=== PATIENT | male | born 1955 | race Caucasian/White ===

== ENCOUNTER 2024-08-10 21:45 | Emergency (ER) | payer MEDICARE, MEDICAID, SELFPAY ==
[2024-08-10 21:52] VITALS: BP 109/98; PULSE 74; RESP 16; TEMP 37.1; O2SAT 100
--- NOTE | 2024-08-10 22:07 | ED.GENADULT ---
HPI - General Adult General Chief complaint: Unspecified Stated complaint: HALLUCINATING S/P EATING MARIJUANA Time Seen by Provider: 08/10/24 21:48 History of Present Illness HPI narrative: 69-year-old male with no pertinent past medical history presenting to the emergency department after being picked up by police. Patient was outside a gas station admitted to drinking alcohol throughout the evening. He states while he was in the back of the police car getting a ride home he took out his marijuana jar and ingested and in described amount of marijuana. He did have some nausea and vomited up part of it. He states that this was leaf and but marijuana and not gummy or any kind of baked goods. He states he has been intoxicated before for marijuana and feels similar at this time. He was hallucinating when EMS arrived to help otherwise appears very well not any acute distress. He is very pleasant, talkative, denies any symptoms at this time aside from hallucinations. Denies any other intoxicants aside from alcohol today. Denies any medical history. Related Data Allergies Allergy/AdvReac Type Severity Reaction Status Date / Time No Known Allergies Allergy Verified 08/10/24 22:04 Review of Systems Review of Systems: As [facility] Social History Social History Substance use type: marijuana Exam Narrative: GENERAL: [Well-appearing, well-nourished, and in no acute distress.] HEAD: [Normocephalic, atraumatic.] EYES: [PERRLA and EOMI.] ENT: Nares clear, no rhinorrhea or epistaxis. Mucous membranes moist. NECK: Supple. CHEST: [Clear to auscultation. No respiratory distress.] HEART: [Regular rate and rhythm]. No murmur heard. [Normal peripheral pulses.] ABDOMEN: [Soft, nondistended], [nontender], [No rigidity or guarding] EXTREMITIES: Normal range of motion. [No edema.] SKIN: Warm, dry, no rash. NEURO: [No focal deficits]. Alert and oriented [x3.] PSYCH: intoxicated but pleasant, cooperative, not in any acute distress, denies any homicidal or suicidal ideation. Endorses hallucinations Course Vital Signs Vital signs: Vital Signs Temperature 37.1 C 08/10/24 21:52 Pulse Rate 74 08/10/24 21:52 Respiratory Rate 16 08/10/24 21:52 Blood Pressure 109/98 H 10/14/24 21:52 Pulse Oximetry 100 08/10/24 21:52 Oxygen Delivery Room Air 08/10/24 21:52 Temperature 37.1 C 08/10/24 21:52 Pulse Rate 65 08/11/24 06:47 Respiratory Rate 15 08/11/24 06:47 Blood Pressure 102/54 L 08/11/24 06:47 Pulse Oximetry 97 08/11/24 06:47 Oxygen Delivery Room Air 08/10/24 22:03 Medical Decision Making MDM Narrative Medical decision making narrative: 69-year-old male who ingested marijuana presenting to the emergency department for hallucinations. 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 He otherwise appears well not any acute distress. no homicidal or suicide ideation, he does not appear danger to himself or others at this time. He has normal reassuring vital signs. Will obtain an IV and basic labs including alcohol level. He was given a fluid bolus. He will be observed for sobriety prior to discharge. Patient's labs reassuring. He has recent metabolic sobriety while here in the emergency department has no acute complaints. He is tolerating p.o. intake and stable for discharge home at this time. He was given return precautions and told to avoid ingestion of marijuana. Medical Records Medical records reviewed: Yes I reviewed the external patient's medical records. Vital Signs Vital Signs: Vital Signs Temperature 37.1 C 08/10/24 21:52 Pulse Rate 74 08/10/24 21:52 Respiratory Rate 16 08/10/24 21:52 Blood Pressure 109/98 H 08/10/24 21:52 Pulse Oximetry 100 08/10/24 21:52 Oxygen Delivery Room Air 08/10/24 21:52 Temperature 37.1 C 08/10/24 21:52 Pulse Rate 65 08/11/24 06:47 Respiratory Rate 15 08/11/24
[2024-08-10 22:27] VITALS: PULSE 70
[2024-08-10] MEDS: ONDANSETRON INJ 4 MG/2 ML VIAL IV PUSH (22:38)
[2024-08-10] MEDS: THIAMINE HCL INJ 100 MG, FOLIC ACID INJ 1 MG, MAGNESIUM SULFATE INJ 1 GM in LACTATED RI... 1000 MG IV CONT (22:38)
[2024-08-10 22:39] LABS: Basophils Absolute Auto 0.1 K/mm3 (0.0-0.1); Basophils Percent Auto 1.2 % (0.2-1.2); Eosinophils Absolute Auto 0.3 K/mm3 (0-0.3); Hematocrit 45.4 % (42.0-52.0); Hemoglobin 15.2 g/dL (14.0-18.0); Immature Granulocyte Absolute 0.03 K/mm3 (0.00-0.031); Immature Granulocyte Percent A 0.3 % (0-0.5); Lymphocytes Absolute Auto 3.48 K/mm3 (0.9-3.2); Lymphocytes Percent Auto 32.7 % (18.3-44.2); Mean Corpuscular HGB Conc 33.5 g/dl (32-36); Mean Corpuscular Volume 98.7 fl (80-100); Mean Platelet Volume 10.1 fl (7.4-10.4); Monocytes Absolute Auto 0.8 K/mm3 (0.1-0.6); Monocytes Percent Auto 7.1 % (2.6-8.5); Neutrophils Absolute Auto 5.9 K/mm3 (1.3-6.7); Neutrophils Percent Auto 55.7 % (45.5-73.1); Platelet Count Result 187 k/mm3 (150-375); Red Cell Distribution Width 12.7 % (11.5-14.5); White Blood Count 10.7 K/mm3 (4.5-10.0)
[2024-08-10 22:50] LABS: Anion Gap 8 mmol/L (4-12); Blood Urea Nitrogen 19 mg/dL (9-20); Calcium 9.3 mg/dL (8.4-10.2); Carbon Dioxide 25 mmol/L (22-30); Chloride 103 mmol/L (98-107); Estimated CRCL calculation 63 ml/min; Estimated Glomerular Filt Rate > 60; Ethanol < 10 mg/dL (<10); Glucose 104 mg/dL (65-110); Potassium 3.4 mmol/L (3.4-5.0); Sodium 136 mmol/L (137-145)
[2024-08-10 23:25] VITALS: BP 140/77; PULSE 68; RESP 15; O2SAT 100
[2024-08-11 00:14] LABS: Amphetamine Screen Urine Negative (Negative); Barbiturate Screen Urine Negative (Negative); Benzodiazepines Screen Urine Negative (Negative); Cannabinoid Screen Urine Positive (Negative); Cocaine Screen Urine Negative (Negative); Methadone Screen Urine Negative (Negative); Opiate Screen Urine Negative (Negative); Phencyclidine Screen Urine Negative (Negative)
[2024-08-11 04:18] VITALS: BP 109/60; PULSE 62; RESP 15; O2SAT 99
[2024-08-11 06:47] VITALS: BP 102/54; PULSE 65; RESP 15; O2SAT 97
[2024-08-11 07:30] VITALS: BP 115/64; PULSE 61; RESP 20; O2SAT 100
--- NOTE | 2024-08-11 08:29 | PCCCNOTE ---
0829-Called to the ED waiting room to assist the pt to transportation home. Pt was standing pacing the floor when approached. Offered the pt tokens for the bus. Pt stated, Give them to someone who needs them . Pt refused the tokens stating he would rather walk to his car in [place]. Pt declined any assistance with calling family/friends, or assistance from staff and walked out out of the ED waiting room on foot.-herrera.
== END 2024-08-11 07:31 | disposition home or self-care (01) ==
PROVIDERS: Emergency Provider Student in an Organized Health Care Education/Training Program
DX: F12.10 Cannabis abuse, uncomplicated (principal)
CPT/HCPCS: 36415; 80048; 80307; 82077; 85025; 96365; 96375; 99284; J2405; J3411; J3475; J7120